=== PATIENT | male | born 1980 | race Caucasian/White ===

== ENCOUNTER 2017-03-28 18:29 | Emergency (ER) | payer SELFPAY ==
[~2017-03-28] VITALS: Ht 175.3 cm; Wt 74.0 kg
[~2017-03-28 18:29] MED LIST: ALL220TA PO; CYCL-36 PO; IBUP-238 PO; LORT5TAB PO
[2017-03-28 18:33] VITALS: BP 148/90; PULSE 90; RESP 16; TEMP 98.6; O2SAT 99
[2017-03-28] MEDS ORDERED: KETOROLAC TROMETHAMINE 60 MG/2 ML (IM) VIAL IM ONE (19:00)
--- NOTE | 2017-03-28 19:02 | PD ---
HPI Chief Complaint: Musculoskeletal Complaint Time Seen by Provider: 18:53 Travel History International Travel<30 days: No Contact w/Intl Traveler<30days: No Traveled to known affect area: No History of Present Illness HPI 36-year-old male presents emergency department for evaluation of right knee pain. Patient reports while attempting to get his disabled daughter out of the car his right knee gave out causing pain to the medial aspect. He denies falling onto the knee. He remained standing during the entire event. He reports pain is worse with weightbearing and full flexion. He denies numbness/ tingling/weakness in the extremity. Pain severity 4/10. PFSH Past Medical History Medical History: Denies Significant Hx Diminished Hearing: No Headaches: Yes Migraines: Yes ?: Not Social History Alcohol Use: Yes (OCCASSIONAL) Tobacco Use: Yes (1 PPD) Substance Use: No Allergies-Medications (Allergen,Severity, Reaction): Coded Allergies: No Known Allergies (Verified , 10/11/11) Reported Meds & Prescriptions Reported Meds & Active Scripts Active Motrin (Ibuprofen) 800 Mg Tab 800 Mg PO TID Flexeril (Cyclobenzaprine HCl) 10 Mg Tab 10 Mg PO TID Lortab 5/500 (Acetaminophen/Hydrocodone Bitart) 5 Mg/500 Mg Tab 1 Tab PO Q4HPRN FOR PAIN Reported Aleve (Naproxen Sodium) 220 Mg Tab 220 Mg PO Review of Systems Except as stated in HPI: all other systems reviewed are Neg Physical Exam Narrative GENERAL: Well-nourished, well-developed patient. SKIN: Focused skin assessment warm/dry. HEAD: Normocephalic. EYES: No scleral icterus. No injection or drainage. NECK: Supple, trachea midline. No JVD or lymphadenopathy. CARDIOVASCULAR: Regular rate and rhythm without murmurs, gallops, or rubs. RESPIRATORY: Breath sounds equal bilaterally. No accessory muscle use. GASTROINTESTINAL: Abdomen soft, non-tender, nondistended. MUSCULOSKELETAL: No cyanosis, or edema. Right lower extremity: Right knee tender to palpation medial aspects soft tissue. No bony point tenderness. No joint effusion. The joint is stable. Patient has pain with full flexion. 2+ distal pulses. Normal sensation. Data Data Last Documented VS Vital Signs Date Time Temp Pulse Resp B/P (MAP) Pulse Ox O2 Delivery O2 Flow Rate FiO2 03/28/17 18:33 98.6 90 16 148/90 (109) 99 Orders Orders Ketorolac Inj (Toradol Inj) (03/28/17 19:00) Splint Or Brace Apply/Monitor (03/28/17 18:53) Crutches (03/28/17 18:53) MDM Medical Decision Making Medical Screen Exam Complete: Yes Emergency Medical Condition: Yes Differential Diagnosis Knee sprain versus strain versus fracture Narrative Course 36-year-old male with chief complaint of right knee pain after his knee gave out today. He did not fall to the ground. On exam patient has tenderness in the medial aspects soft tissue. No bony point tenderness. Joint is stable. Patient declined x-ray. I do not suspect fracture. Patient be treated for knee sprain and instructed to follow-up with his orthopedist. They verbalize understanding and agrees to plan. Diagnosis Primary Impression: Knee sprain Qualified Codes: S83.411A - Sprain of medial collateral ligament of right knee , initial encounter Referrals: Orthopedist Additional Instructions: Take [id number] Motrin 600-800 mg every 6-8 hours as needed for pain. With Renato wrap and knee immobilizer for support until weightbearing as possible. Ice and elevate the extremity. Follow-up with the orthopedist. Disposition: 01 DISCHARGE HOME Condition: Stable Nano Ge Mar 28, 2017 19:02
== END 2017-03-28 19:32 | disposition home or self-care (01) ==
LOC: PHEFT 18:29
DX: S83.411A Sprain of medial collateral ligament of right knee, initial encounter (principal)
CPT/HCPCS: 96372; 99284; E0113; J1885; L1830